=== PATIENT | female | born 1970 | race Caucasian/White ===

== ENCOUNTER → 2016-12-09 | Outpatient (CLI) | payer OTHER, BC ==
[2016-12-09 12:13] LABS: HEMATOCRIT 45.3 % (34.6-47.8); HEMOGLOBIN 15.6 g/dL (11.7-16.4); WHITE BLOOD COUNT 8.8 x10^3/uL (3.4-10)
[2016-12-09 12:21] LABS: BLOOD UREA NITROGEN 12 mg/dL (7-18)
== END | disposition home or self-care (01) ==
LOC: STAR 11:01
PROVIDERS: ATTEND Obstetrics & Gynecology
DX: Z01.818 Encounter for other preprocedural examination (principal); N92.0 Excessive and frequent menstruation with regular cycle; N94.6 Dysmenorrhea, unspecified; N80.0 Endometriosis of uterus
CPT/HCPCS: 36415; 80048; 81001; 84702; 85025; 93005

== ENCOUNTER 2016-12-17 05:35 | Day surgery (SDC) | payer OTHER, BC ==
[~2016-12-17] VITALS: Ht 160 cm; Wt 77.0 kg
[~2016-12-17 05:35] MED LIST: DICL100G25 TP; HYDR-879 PO; LIDO1ADH TP; METH750T87 PO; POLY510P31 PO
[2016-12-17] MEDS ORDERED: LACTATED RINGERS 1,000 ML IV SCH (06:06)
[2016-12-17] MEDS ORDERED: GABAPENTIN 300 MG CAPSULE PO ONE (06:09)
[2016-12-17] MEDS ORDERED: ACETAMINOPHEN 500 MG TABLET PO STA (06:09)
[2016-12-17 06:44] LABS: HCG UR LOT HCG7030192
[2016-12-17] MEDS ORDERED: EPINEPHRINE 1 MG/ML, 1ML ONE ×2 (06:49→07:17)
[2016-12-17] MEDS ORDERED: FLUORESCEIN SODIUM 500 MG/5 ML ONE (06:49)
[2016-12-17 06:53] LABS: HCG UR OBC PASS
[2016-12-17] MEDS ORDERED: PROPOFOL 10 MG/ML, 20ML ONE (07:07)
[2016-12-17] MEDS ORDERED: ROCURONIUM 10 MG/ML ONE ×2 (07:08→07:32)
[2016-12-17] MEDS ORDERED: SUCCINYLCHOLINE 20 MG/ML, 10ML ONE (07:09)
[2016-12-17] MEDS ORDERED: FENTANYL PF 100 MCG/2ML ONE ×2 (07:10→09:46)
[2016-12-17] MEDS ORDERED: MIDAZOLAM 1 MG/ML, 2ML ONE (07:10)
[2016-12-17] MEDS ORDERED: ACETAMINOPHEN 325 MG TABLET PO PRN (07:30)
[2016-12-17] MEDS ORDERED: KETOROLAC 30 MG/1 ML IV PRN (07:30)
[2016-12-17] MEDS ORDERED: MIDAZOLAM 1 MG/ML, 2ML IV PRN (07:30)
[2016-12-17] MEDS ORDERED: ALBUTEROL SULFATE 2.5 MG/3 ML NPPB PRN (07:30)
[2016-12-17] MEDS ORDERED: LORazepam 2 MG/ML, 1ML IVPush PRN (07:30)
[2016-12-17] MEDS ORDERED: EPHEDRINE 50 MG/ML, 1ML IVPush PRN (07:30)
[2016-12-17] MEDS ORDERED: hydrALAzine 20 MG/ML, 1ML IV PRN (07:30)
[2016-12-17] MEDS ORDERED: ONDANSETRON 2MG/ML, 2ML IVPush PRN (07:30)
[2016-12-17] MEDS ORDERED: LABETALOL 5MG/ML, 20ML IV PRN (07:30)
[2016-12-17] MEDS ORDERED: HYDROcodone/APAP 7.5-325MG/15ML UDC PO PRN (07:30)
[2016-12-17] MEDS ORDERED: METOPROLOL 1 MG/ML, 5ML IV PRN (07:30)
[2016-12-17] MEDS ORDERED: MEPERIDINE/PF 25MG/0.5ML IVPush PRN (07:30)
[2016-12-17] MEDS ORDERED: OXYcodone 5 MG/5 ML ORAL.SOL UDC PO PRN (07:30)
[2016-12-17] MEDS ORDERED: PROMETHAZINE 25 MG/ML, 1ML IV PRN (07:30)
[2016-12-17] MEDS ORDERED: METOCLOPRAMIDE 5 MG/ML, 2ML IV PRN (07:30)
[2016-12-17] MEDS ORDERED: ONDANSETRON 2MG/ML, 2ML ONE (07:32)
[2016-12-17] MEDS ORDERED: DEXAMETHASONE 4 MG/ML, 1ML ONE (07:32)
[2016-12-17] MEDS ORDERED: CEFAZOLIN 1,000 MG ONE ×2 (07:52)
[2016-12-17] MEDS ORDERED: KETAMINE 10 MG/ML, 20ML ONE (07:58)
[2016-12-17] MEDS: BUPIVACAINE/PF 0.25% ONE ×2 (08:03→08:04)
[2016-12-17] MEDS ORDERED: OXYcodone 5 MG/5 ML ORAL.SOL UDC ONE (09:46)
[2016-12-17] MEDS ORDERED: ACETAMINOPHEN 650 MG/20.3 ML UDC ONE (09:46)
[2016-12-17] MEDS: FENTANYL PF 100 MCG/2ML IV PRN ×2 (09:47→10:10)
[2016-12-17] MEDS: HYDROmorphone 1 MG/ML, 1ML IV PRN (10:10)
[2016-12-17] MEDS ORDERED: HYDROmorphone 1 MG/ML, 1ML ONE (10:16)
== END 2016-12-17 13:26 ==
LOC: OUT 05:35
PROVIDERS: ATTEND Obstetrics & Gynecology
DX: N93.9 Abnormal uterine and vaginal bleeding, unspecified (principal); N80.0 Endometriosis of uterus; I10 Essential (primary) hypertension; E78.00 Pure hypercholesterolemia, unspecified; Z98.890 Other specified postprocedural states; Z90.49 Acquired absence of other specified parts of digestive tract; Z86.73 Personal history of transient ischemic attack (TIA), and cerebral infarction without residual deficits
CPT/HCPCS: 52000; 58552; 81025; 88307; J0171; J0330; J0690; J1100; J1170; J2250; J2405; J2704; J3010; J3490; J7120